=== PATIENT | female | born 1935 | race Hispanic/Latino ===

== ENCOUNTER 2016-12-02 08:38 | Outpatient (CLI) | payer MEDICARE ==
--- NOTE | 2016-12-05 07:53 | Vascular Lab Report ---
RENAL ARTERY DUPLEX EXAM: REASON FOR EXAM: Renal artery stenosis. NOTE: Visualization is technically adequate. COMMENTS ON THE AORTA: The aorta is patent. Normal flow velocities are observed. No aneurysmal dilatation is noted. Mild atherosclerotic change is identified. The celiac artery is patent with normal flow velocity. The superior mesenteric artery is patent with normal flow velocity. COMMENTS ON THE RIGHT KIDNEY: The kidney measures 10.1 centimeters in greatest dimension. No obvious parenchymal abnormalities are noted. The renal artery is patent. Maximum systolic velocity is 162 cm/sec. This finding is consistent with less than 60% diameter reduction. Renal aortic index is 2.3. This finding is consistent with less than 60% diameter reduction. Overall findings are consistent with less than 60% diameter reduction in the renal artery. COMMENTS ON THE LEFT KIDNEY: The kidney measures 10.3 centimeters in greatest dimension. No obvious parenchymal abnormalities are noted. The renal artery is patent. Maximum systolic velocity is 113 cm/sec. This finding is consistent with less than 60% diameter reduction. Renal aortic index is 2.2. This finding is consistent with less than 60% diameter reduction. Overall findings are consistent with less than 60% diameter reduction in the renal artery. IMPRESSION: RIGHT KIDNEY: Less than 60% diameter reduction in the renal artery. LEFT KIDNEY: Less than 60% diameter reduction in the renal artery.
== END 2016-12-02 08:39 | disposition home or self-care (01) ==
LOC: VAS 08:38
PROVIDERS: ATTEND Internal Medicine Nephrology
DX: I15.0 Renovascular hypertension (principal); I70.1 Atherosclerosis of renal artery
CPT/HCPCS: 93975

== ENCOUNTER 2018-02-14 07:14 | Emergency (ER) | payer MEDICARE ==
--- NOTE | 2018-02-14 07:26 | Emergency Department Report ---
ED Neuro Deficit HPI - General Stated Complaint: POSSIBLE CVA Time Seen by Provider: 02/14/18 07:17 Source: EMS Limitations: Altered Mental Status, Physical Limitation - History of Present Illness Initial Comments: Patient is 82 years old female with history of hypertension. Patient brought to the ER as a code stroke. EMS is stated that patient last time was seen normal was last night. Patient is aphasic with significant right facial paralysis and right upper and lower extremity weakness. Unable to get more history at this time. -: Last night Location: speech, right face, dysarthria Presenting Symptoms: Present: Weak/Paralyzed One Side, Facial Droop/Numbness, Unable to Speak Clearly History of same: No Place: home Context: sudden onset - Related Data Allergies/Adverse Reactions: Allergies Allergy/AdvReac Type Severity Reaction Status Date / Time No Known Allergies Allergy Verified 02/14/18 08:01 ED Review of Systems ROS: Stated complaint: POSSIBLE CVA Other details as noted in HPI Comment: Unobtainable due to pts medical conditions ED Past Medical Hx - Past Medical History Hx Hypertension: Yes ED Neuro Physical Exam - General General appearance: alert, in no apparent distress Suspected Stroke: Yes - Head Head exam: Present: atraumatic, normocephalic, normal inspection - Eye Eye exam: Present: normal appearance - ENT ENT exam: Present: normal exam, normal orophraynx, mucous membranes moist - Neck Neck exam: Present: normal inspection, full ROM. Absent: tenderness, meningismus, lymphadenopathy, thyromegaly - Respiratory Respiratory exam: Present: normal lung sounds bilaterally. Absent: respiratory distress, wheezes, rales, rhonchi, stridor, chest wall tenderness, accessory muscle use, decreased breath sounds, prolonged expiratory - Cardiovascular Cardiovascular Exam: Present: regular rate, normal rhythm, normal heart sounds - GI/Abdominal GI/Abdominal exam: Present: soft, normal bowel sounds. Absent: distended, tenderness, guarding, rebound, rigid, mass, bruit, pulsatile mass - Extremities Exam Extremities exam: Present: normal inspection, full ROM, normal capillary refill - Back Exam Back exam: Present: normal inspection, full ROM. Absent: tenderness, CVA tenderness (R), CVA tenderness (L) - Neurological Exam Neurological exam: Present: alert - NIHSS Assessment Interval: Baseline 1a. Level of Consciousness: alert 1b. LOC Questions: answers no questions correctly 1c. LOC Commands: performs no tasks correctly 2. Best Gaze: normal 3. Visual: no visual loss 4. Facial Palsy: complete paralysis 5b. Motor Arm Right: drift 5a. Motor Arm Left: no drift 6a. Motor Leg Left: no drift 6b. Motor Leg Right: drift 7. Limb Ataxia: absent 8. Sensory: normal 9. Best Language: mute/global aphasia 10. Dysarthria: severe dysarthria 11. Extinction/Inattention: no abnormality - Skin Skin exam: Present: warm, intact, normal color ED Course Vital Signs 02/14/18 02/14/18 02/14/18 07:28 07:30 07:34 Temperature 98 F Pulse Rate 73 70 Respiratory 12 19 18 Rate Blood Pressure 174/83 161/79 O2 Sat by Pulse 95 98 98 Oximetry 02/14/18 02/14/18 02/14/18 07:46 08:00 08:15 Temperature Pulse Rate 69 65 71 Respiratory 18 17 18 Rate Blood Pressure 161/79 160/76 185/84 O2 Sat by Pulse 97 98 98 Oximetry 02/14/18 02/14/18 08:30 08:46 Temperature Pulse Rate 80 84 Respiratory 25 H 12 Rate Blood Pressure 178/92 176/48 O2 Sat by Pulse 87 Oximetry - Reevaluation(s) Reevaluation #1: 02/14/18 07:33 I discussed the patient weighs Dr. Longoria, tele- neurologist, he stated that he will arrange for transfer to [facility] and he will call me back. 02/14/18 09:10 Reevaluation #2: 02/14/18 09:09 I discussed the patient is Dr. Bosch from [facility] Doctor Danitza stated that patient does not look like a candidate for thrombectomy because of possible calcification in the arteries but he advised to do a CT angiogram of the brain and neck and call him with the results. - Lab Data Result diagrams: 02/14/18 07:52 02/14/18 07:52 Lab Results 02/14/18 02/14/18 02/14/18 Range/Units 07:52 07:52 07:52 WBC 9.0 (4.5-11.0) K/mm3 RBC 4.34 (3.65-5.03) M/mm3 Hgb 12.8 (10.1-14.3) gm/dl Hct 38.8 (30.3-42.9) % MCV 89 (79-97) fl MCH 29 (28-32) pg MCHC 33 (30-34) % RDW 15.9 H (13.2-15.2) % Plt Count 186 (140-440) K/mm3 Lymph % (Auto) 16.4 (13.4-35.0) % [place] % (Auto) 6.9 (0.0-7.3) % Eos % (Auto) 0.5 (0.0-4.3) % Baso % (Auto) 0.5 (0.0-1.8) % Lymph # 1.5 (1.2-5.4) K/mm3 [place] # 0.6 (0.0-0.8) K/mm3 Eos # 0.0 (0.0-0.4) K/mm3 Baso # 0.0 (0.0-0.1) K/mm3 Seg Neutrophils % 75.7 H (40.0-70.0) % Seg Neutrophils # 6.8 (1.8-7.7) K/mm3 PT 13.5 (12.2-14.9) Sec. INR 0.98 (0.87-1.13) APTT 31.9 (24.2-36.6) Sec. Thrombin Time (15.1-19.6) Sec. Sodium 141 (137-145) mmol/L Potassium 4.1 (3.6-5.0) mmol/L Chloride 104.0 (98-107) mmol/L Carbon Dioxide 25 (22-30) mmol/L Anion Gap 16 mmol/L BUN 21 H (7-17) mg/dL Creatinine 0.7 (0.7-1.2) mg/dL Estimated GFR > 60 ml/min BUN/Creatinine Ratio 30 % Glucose 114 H (65-100) mg/dL Calcium 9.3 (8.4-10.2) mg/dL Troponin T < 0.010 (0.00-0.029) ng/mL 02/14/18 Range/Units 07:52 WBC (4.5-11.0) K/mm3 RBC (3.65-5.03) M/mm3 Hgb (10.1-14.3) gm/dl Hct (30.3-42.9) % MCV (79-97) fl MCH (28-32) pg MCHC (30-34) % RDW (13.2-15.2) % Plt Count (140-440) K/mm3 Lymph % (Auto) (13.4-35.0) % [place] % (Auto) (0.0-7.3) % Eos % (Auto) (0.0-4.3) % Baso % (Auto) (0.0-1.8) % Lymph # (1.2-5.4) K/mm3 [place] # (0.0-0.8) K/mm3 Eos # (0.0-0.4) K/mm3 Baso # (0.0-0.1) K/mm3 Seg Neutrophils % (40.0-70.0) % Seg Neutrophils # (1.8-7.7) K/mm3 PT (12.2-14.9) Sec. INR (0.87-1.13) APTT (24.2-36.6) Sec. Thrombin Time 16.5 (15.1-19.6) Sec. Sodium (137-145) mmol/L Potassium (3.6-5.0) mmol/L Chloride (98-107) mmol/L Carbon Dioxide (22-30) mmol/L Anion Gap mmol/L BUN (7-17) mg/dL Creatinine (0.7-1.2) mg/dL Estimated GFR ml/min BUN/Creatinine Ratio % Glucose (65-100) mg/dL Calcium (8.4-10.2) mg/dL Troponin T (0.00-0.029) ng/mL - EKG Data -: EKG Interpreted by Vt EKG shows normal: sinus rhythm Rate: normal Interpretation: no acute changes - Radiology Data Radiology results: report reviewed Referring Physician: MAYTE YOUSIF Patient Name: CARY ENRIQUEZ Date of : 1935 Sex: Female Report Date: 2018-02-14 Report Status: Finalized Findings [facility] [address] [place] [address] Cat Scan Report Signed Patient: CARY ENRIQUEZ MR#: [id number] : 1935 Acct:[id number] Age/Sex: 82 / F ADM Date: 02/14/18 Loc: ED Attending Dr: Ordering Physician: MAYTE YOUSIF Date of Service: 02/14/18 Procedure(s): CT head/brain wo con Accession Number(s): [id number] cc: MAYTE YOUSIF HEAD CT WITHOUT CONTRAST INDICATION: Neurologic deficits < 6 hours or symptoms present upon awakening. 98N. Right-sided symptoms. COMPARISON: None similar. FINDINGS: Noncontrast head CT demonstrates extensive left MCA hyperdensity/thrombus extending to the sylvian fissure as on axial series 2, images 13-16. Early hypodense left MCA infarction/miller-white matter differentiation loss also noted developing as on axial images 14-40, amongst others. No hemorrhage or significant midline shift at this time, though slight asymmetric effacement of left frontal horn suspected as on axial image 22, amongst others. Age-appropriate atrophy with mild microvascular changes. Few small lacunar infarcts as approximately 4 mm in the right caudate nucleus, axial image 18 incidentally noted. Normal posterior fossa with preserved basilar cisterns. Postsurgical changes/calcifications involve both eye globes anteriorly, axial image 2. Hypoplastic/aplastic right frontal sinus. Slight sphenoid sinus mucosal thickening anteriorly on the right and posteriorly on the left. Clear remainder aerated paranasal sinuses and temporal bone/mastoid air cells. Left mastoid tip though not well pneumatized. Normal calvarium and scalp. Few missing teeth. CONCLUSION: Extensive left MCA hyperdensity/thrombosis with infarction developing, as detailed above. Few other incidental findings, as above. Please also correlate clinically and with MRI, if warranted. I phoned the above results to Dr. Yousif in the ER, 7:30 AM, 02/14/2018. Thank you for the opportunity to participate in this patient's care. Transcribed By: RS Dictated By: SULEIMAN GUSTAFSON MD Electronically Authenticated By: SULEIMAN GUSTAFSON MD Signed Date/Time: 02/14/18740 DD/ 9 TD/TT: 02/14/18740 - Medical Decision Making NIHSS is 18. I discussed patient with Dr. Hanson from [facility] and he agreed to transfer patient to [facility] for possible thrombectomy. He stated that he will arrange the flight to [facility]. Critical Care Time: Yes Critical care time in (mins) excluding proc time.: 60 Critical care attestation.: If time is entered above; I have spent that time in minutes in the direct care of this critically ill patient, excluding procedure time. ED Disposition Clinical Impression: Stroke Disposition: DC/[place]-70 ANOTHER TYPE HLTHCARE Is pt being admited?: Yes Condition: Stable Referrals: DANIEL HELLER MD [Primary Care Provider] - 3-5 Days
--- NOTE | 2018-02-14 07:49 | Cat Scan Report ---
HEAD CT WITHOUT CONTRAST INDICATION: Neurologic deficits < 6 hours or symptoms present upon awakening. 98N. Right-sided symptoms. COMPARISON: None similar. FINDINGS: Noncontrast head CT demonstrates extensive left MCA hyperdensity/thrombus extending to the sylvian fissure as on axial series 2, images 13-16. Early hypodense left MCA infarction/miller-white matter differentiation loss also noted developing as on axial images 14-40, amongst others. No hemorrhage or significant midline shift at this time, though slight asymmetric effacement of left frontal horn suspected as on axial image 22, amongst others. Age-appropriate atrophy with mild microvascular changes. Few small lacunar infarcts as approximately 4 mm in the right caudate nucleus, axial image 18 incidentally noted. Normal posterior fossa with preserved basilar cisterns. Postsurgical changes/calcifications involve both eye globes anteriorly, axial image 2. Hypoplastic/aplastic right frontal sinus. Slight sphenoid sinus mucosal thickening anteriorly on the right and posteriorly on the left. Clear remainder aerated paranasal sinuses and temporal bone/mastoid air cells. Left mastoid tip though not well pneumatized. Normal calvarium and scalp. Few missing teeth. CONCLUSION: Extensive left MCA hyperdensity/thrombosis with infarction developing, as detailed above. Few other incidental findings, as above. Please also correlate clinically and with MRI, if warranted. I phoned the above results to Dr. Ibrahim in the ER, 7:30 AM, 02/14/2018. Thank you for the opportunity to participate in this patient's care.
[2018-02-14 08:03] LABS: Basophils % (Auto) 0.5 % (0.0-1.8); Eosinophils % (Auto) 0.5 % (0.0-4.3); Hematocrit 38.8 % (30.3-42.9); Hemoglobin 12.8 gm/dl (10.1-14.3); Lymphocytes # (Auto) 1.5 K/mm3 (1.2-5.4); Lymphocytes % (Auto) 16.4 % (13.4-35.0); Mean Corpuscular HGB Conc 33 % (30-34); Mean Corpuscular Hemoglobin 29 pg (28-32); Mean Corpuscular Volume 89 fl (79-97); Monocytes # (Auto) 0.6 K/mm3 (0.0-0.8); Monocytes % (Auto) 6.9 % (0.0-7.3); Platelet Count 186 K/mm3 (140-440); Red Blood Count 4.34 M/mm3 (3.65-5.03); Red Cell Distribution Width 15.9 % (13.2-15.2)
[2018-02-14 08:13] LABS: INR 0.98 (0.87-1.13)
[2018-02-14 08:14] LABS: Partial Thromboplastin Time 31.9 Sec. (24.2-36.6)
[2018-02-14 08:18] LABS: BUN/Creatinine Ratio 30; Blood Urea Nitrogen 21 mg/dL (7-17); Calcium 9.3 mg/dL (8.4-10.2); Hemolysis Index 17
--- NOTE | 2018-02-14 11:15 | Cat Scan Report ---
CTA HEAD CTA NECK INDICATION: Stroke, right-sided symptoms. COMPARISON: Head CT from earlier today. FINDINGS: CTA head and neck performed utilizing IV contrast. Axial, sagittal, coronal and MIP reconstructions obtained. CTA HEAD: Patent [place] without evidence of significant stenosis or vascular malformation. Left M1 segment is patent, though thrombus/occlusion suspected at M1/M2 bifurcation about the sylvian fissure as on axial series 2, image 110. Left MCA branches along the left sylvian fissure also less numerous or well opacified than the right as on axial image 111. Previous hyperdense left M2 segment does not as convincingly appear calcified with thin contrast opacifying it as on axial images 108-112. Patent vertebrobasilar system. CTA NECK: Patent aortic arch and major arising branch vessels, including bilateral carotids and codominant vertebral arteries. Few atherosclerotic calcifications. Mild, approximately 40% stenosis of the left subclavian artery at its origin, axial series 2, images 32-38. Tortuous/anterior bowing of right innominate/proximal common carotid artery as on axial images 29-48. No significant stenosis of the carotid bulb with mild atherosclerotic calcifications on the right. Patent remainder ICAs extending to the skull base. Patent jugular veins. Thyroid gland size normal, though diffusely heterogeneous with numerous small hypodensities as measuring 3 mm on the left on axial image 41, series 2. Slight biapical scarring. Possible COPD. No size significant neck lymphadenopathy. Approximately 2 x 1.5 x 2.7 cm enhancing mass within the left parotid gland posteriorly as on axial image 81, series 2, possibly a pleomorphic adenoma or a lymph node, amongst others. Demineralized bones. Few cervical and imaged thoracic spine degenerative changes. CONCLUSION: 1. Suspected thrombosis/branch occlusion at the left MCA bifurcation about the left sylvian fissure, corresponding to prior noncontrast hyperdense appearance, as described. 2. Patent remainder major intracranial and neck vasculature with various other findings, including left parotid mass, as above. I phoned the above results to Dr. Ibrahim in the ER, 10:30 AM, 02/14/2018. Thank you for the opportunity to participate in this patient's care.
[2018-02-14 12:05] VITALS: BP 157/96
== END 2018-02-14 12:05 | disposition other institution (70) ==
LOC: ED 07:14
DX: I63.9 Cerebral infarction, unspecified (principal); I10 Essential (primary) hypertension
CPT/HCPCS: 36415; 70450; 70496; 70498; 80048; 82962; 84484; 85025; 85610; 85670; 85730; 93005; 93010; 99291; Q9967